=== PATIENT | male | born 1985 ===

== ENCOUNTER 2018-08-26 09:43 | Emergency (ER) | payer BC ==
--- NOTE | 2018-08-26 12:02 | UC ---
Hand/Wrist HPI - HPI Summary HPI Summary: 33 yo male presents with LEFT hand injury. He tells me that 6 days ago he was playing hockey and was hit in the left hand with a hockey stick. Since that time has had pain at the [facility]. He is right handed. No pain at rest, but notices pain when twisting or gripping such as doorknobs. Denies numbness or tingling. - History Of Current Complaint Stated Complaint: HAND INJURY Time Seen by Provider: 08/26/18 12:02 Hx Obtained From: Patient Onset/Duration: Sudden Onset Severity Initially: Mild Severity Currently: Mild Pain Intensity: 3 Pain Scale Used: 0-10 Numeric - Allergies/Home Medications Allergies/Adverse Reactions: Allergies Allergy/AdvReac Type Severity Reaction Status Date / Time No Known Allergies Allergy Verified 08/26/18 12:06 Home Medications: Home Medications NK [No Home Medications Reported] 08/26/18 [History Confirmed 08/26/18] PMH/Surg Hx/FS Hx/Imm Hx - Additional Past Medical History Additional PMH: None - Surgical History Surgical History: None - Family History Known Family History: Positive: None - Social History Occupation: Employed Full-time Lives: With Family Alcohol Use: Occasionally Substance Use Type: None Smoking Status (MU): Never Smoked Tobacco Review of Systems All Other Systems Reviewed And Are Negative: Yes Constitutional: Positive: Negative Skin: Positive: Negative Respiratory: Positive: Negative Cardiovascular: Positive: Negative Neurovascular: Positive: Negative Musculoskeletal: Positive: Other: - Left hand pain Neurological: Positive: Negative Psychological: Positive: Negative Physical Exam - Summary Physical Exam Summary: GENERAL: NAD. WDWN. No pain distress. SKIN: No rashes, sores, lesions, or open wounds. CHEST: No accessory muscle use. Breathing comfortably and in no distress. CV: Pulses intact radial and ulnar. Cap refill <2seconds MSK: LEFT HAND: NTTP. FROM. Strength 5/5 including tire recapper strength. No edema or obvious bony deformities. No snuffbox tenderness. Mild pain during gripping and with twisting. NEURO: Alert. Sensations intact hand and all fingers. PSYCH: Age appropriate behavior. Triage Information Reviewed: Yes Vital Signs: Vital Signs: Temp Pulse Resp BP Pulse Ox 98.7 F 60 18 120/66 98 08/26/18 12:02 08/26/18 12:02 08/26/18 12:02 08/26/18 12:02 08/26/18 12:02 Vital Signs Reviewed: Yes Hand/Wrist Course/Dx - Course Course Of Treatment: XR: IMPRESSION: NO EVIDENCE FOR FRACTURE. Suspect contusion. Advised pt to RICE and take ibuprofen as directed for pain. F /u if symptoms do not improve. - Differential Dx/Diagnosis Provider Diagnosis: Contusion of left hand Discharge - Sign-Out/Discharge Documenting (check all that apply): Patient Departure All imaging exams completed and their final reports reviewed: Yes - Discharge Plan Condition: Stable Disposition: HOME Patient Education Materials: Contusion in Adults (ED) Referrals: No Primary Care Phys,NOPCP [Primary Care Provider] - Additional Instructions: If you develop a fever, shortness of breath, chest pain, new or worsening symptoms - please call your PCP or go to the ED. Rest and apply ice to your hand to reduce pain. I suspect this will improve with continued rest and time - Billing Disposition and Condition Condition: STABLE Disposition: Home
== END 2018-08-26 12:34 | disposition home or self-care (01) ==
LOC: UCEAST 09:43
DX: S60.222A Contusion of left hand, initial encounter (principal); W21.210A Struck by ice hockey stick, initial encounter; Y93.22 Activity, ice hockey; Y92.9 Unspecified place or not applicable
CPT/HCPCS: 99201; G0463